=== PATIENT | female | born 1985 | race Caucasian/White ===

== ENCOUNTER 2016-11-11 05:52 | Inpatient (IN) | payer OTHER ==
[2016-11-04 15:27] VITALS: BMI 48.4
[~2016-11-11 05:52] MED LIST: ceFAZolin 2 GM in SODIUM CHLORIDE 0.9% 100 ML IVPB ONE
[2016-11-11] MEDS ORDERED: ONDANSETRON 4 MG/2 ML VIAL IVP ONE ×2 (05:58→09:55)
[2016-11-11] MEDS ORDERED: DEXAMETHASONE SOD PHOSPHATE 10 MG/ML 1 ML VIAL IV ONE (05:58)
[2016-11-11] MEDS ORDERED: SCOPOLAMINE 1.5MG/72HR PATCH TRANSDERM ONE (05:58)
[2016-11-11] MEDS ORDERED: LIDOCAINE 1% 20 ML VIAL (10MG/ML) FOR IV START INTRADERMA PRN (05:58)
[2016-11-11] MEDS: LACTATED RINGERS 1,000 ML IV SCH ×2 (06:43→14:47)
[2016-11-11] MEDS ORDERED: HEPARIN SODIUM,PORCINE 5,000 UNIT/ML 1 ML VIAL SQ ONE (07:45)
--- NOTE | 2016-11-11 07:46 | P.GSHP ---
History of Present Illness H&P Date: 11/11/16 Chief Complaint: Chronic dysphagia This is a 31-year-old female who presents today for removal of LAP-BAND secondary to chronic dysphagia. Patient is undergoing workup for conversion to sleeve gastrectomy. - Constitutional Constitutional: Reports as per HPI Past Medical History Past Medical History: Asthma, GERD/Reflux, Osteoarthritis (OA) Additional Past Medical History / Comment(s): restless leg syndrome, past hx. renal failure related to a kidneystone, chronic kidney stones, hypoglycemia History of Any Multi-Drug Resistant Organisms: None Reported Past Surgical History: Bariatric Surgery Additional Past Surgical History / Comment(s): Ovarian cyst removed in 1997, stent in kidney (removed 2 weeks after insertion) due to acute renal failure secondary to kidney stone, lapband 2002 Past Anesthesia/Blood Transfusion Reactions: No Reported Reaction Past Psychological History: No Psychological Hx Reported Smoking Status: Never smoker Past Alcohol Use History: Occasional Past Drug Use History: None Reported - Past Family History Father Family Medical History: Hypertension Mother Family Medical History: Cancer Additional Family Medical History / Comment(s): has a cardiac condition that is being investigated (has heart fluttering and extra beats)., skin cancer diagnosed fall 2015 Medications and Allergies Home Medications Medication Instructions Recorded Confirmed Type Acetaminophen [Tylenol] 325 mg PO Q4H PRN 11/04/16 11/04/16 History Allergies Allergy/AdvReac Type Severity Reaction Status Date / Time tramadol [From Ultram] Allergy Rash/Hives Verified 11/11/16 06:18 Surgical - Exam Vital Signs Temp Pulse Resp BP Pulse Ox 98.2 F 89 16 130/87 98 11/11/16 06:24 11/11/16 06:24 11/11/16 06:24 11/11/16 06:24 11/11/16 06:24 - General well developed, no distress - Eyes PERRL - ENT normal pinna - Neck no masses - Respiratory normal expansion - Cardiovascular Rhythm: regular - Abdomen Abdomen: soft, non tender Assessment and Plan Plan: Chronic dysphagia. We'll perform lap scope removal of LAP-BAND system
[2016-11-11] MEDS ORDERED: BUPIVACAIN-EPI 0.25%-1:200,000 30 ML VIAL SQ ONE ×2 (07:47→08:12)
[2016-11-11] MEDS ORDERED: GLYCOPYRROLATE 0.2 MG/ML 2 ML VIAL ONE (07:49)
[2016-11-11] MEDS ORDERED: MIDAZOLAM 2 MG/2 ML VIAL ONE (07:49)
[2016-11-11] MEDS ORDERED: NEOSTIGMINE 1 MG/ML 10 ML VIAL ONE (07:49)
[2016-11-11] MEDS ORDERED: ROCURONIUM BROMIDE 10 MG/ML 10 ML VIAL IV ONE (07:49)
[2016-11-11] MEDS ORDERED: SUCCINYLCHOLINE CHLORIDE VIAL 200 MG/10 ML VIAL IV ONE (07:49)
[2016-11-11] MEDS ORDERED: LIDOCAINE 1% INJ 10MG/ML (20 ML MDV) ONE (07:49)
[2016-11-11] MEDS ORDERED: fentaNYL (PF) 50 MCG/ML 2 ML AMP ONE (07:49)
[2016-11-11] MEDS ORDERED: PROPOFOL 10 MG/ML 20 ML VIAL IV ONE (07:49)
[2016-11-11] MEDS ORDERED: SODIUM CHLORIDE 0.9% 50 ML with ceFAZolin 1,000 MG IV ONE ×2 (08:00)
[2016-11-11] MEDS ORDERED: METHYLENE BLUE IRRIGATION STA ×2 (08:41)
[2016-11-11] MEDS ORDERED: [UNRECOGNIZED DRUG - OTHER] IRRIGATION STA ×2 (08:41)
[2016-11-11] MEDS ORDERED: SODIUM CHLORIDE 0.9% IRRIGATION STA ×2 (08:41)
[2016-11-11] MEDS ORDERED: NALOXONE 0.4 MG/ML 1 ML VIAL IV PRN (09:29)
[2016-11-11] MEDS ORDERED: ONDANSETRON 4 MG/2 ML VIAL IVP PRN (09:29)
[2016-11-11] MEDS ORDERED: LACTATED RINGERS 1,000 ML IV ONE (09:29)
--- NOTE | 2016-11-11 09:29 | P.OP ---
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 She received general anesthesia. She was then placed in dorsal lithotomy position. Her abdomen was prepped and draped in usual sterile fashion. The skin incision sites were anesthetized 1% local Xylocaine. The skin was incised the LAP-BAND port site and then using blunt and sharp dissection with cautery the LAP-BAND port was dissected free from some taste tissues. The PEG tube was then cut and the LAP-BAND port was removed. Next using a 5 mm blade less trocar under direct visitation the peritoneal cavity is entered. Upon entering the peritoneal cavity the abdomen was insufflated and then the laparoscope was placed back the pleural cavity. There were significant adhesions noted around the LAP-BAND liver and stomach. Next a 5 mm trochars placed in the left lateral and the right lateral position. Using the Harmonic scissors and Metzenbaum scissors the adhesions were lysed. Approximately 20 minutes of operative time used to lyse adhesions. Next a 15 mm trocar was exchanged for the original 5 mm trocar. And then a 5 mm trochars placed in the right epigastric addition in the left lateral lobe liver was retracted. And another 5 mm trochars placed in the supraumbilical position. The adhesions Caren device were lysed. The patient had developed a hiatal hernia and the LAP-BAND was partially in the hiatal hernia in the thorax. The LAP-BAND was brought down to the abdominal cavity and then the anterior gastric wall plication was taken down with sharp dissection. Care was taken to identify and preserve the gastric wall. The there was an obvious hiatal hernia. Using the Harmonic scissors the nhi was dissected in 360 fashion. There was a good length of intra-abdominal esophagus. The nhi was then repaired using 2-0 Ethibond suture. The LAP-BAND device was then cut and withdrawn from around stomach. The LAP-BAND was brought up through the 15 mm trocar site. The stomach was insufflated with methylene blue normal saline. There is no evidence of any injury to the stomach or esophagus. There is no extravasation of blue. The trochars withdrawn. The skin was closed interrupted 3-0 Monocryl suture. Dermabond was applied. Patient was sent to recovery in stable condition.
[2016-11-11] MEDS: HYDROmorphone 1 MG/ML 1 ML SYRINGE IVP PRN ×10 (09:40→21:01)
[2016-11-11] MEDS ORDERED: PROMETHAZINE INJ 25 MG/ML 1 ML VIAL IM STA (10:06)
[2016-11-11 21:38] VITALS: RESP 16
--- NOTE | 2016-11-11 23:10 | CONS ---
DATE OF CONSULTATION: CHIEF COMPLAINT: A 31-year-old white female, status post surgery for lap band removal, hernia removal for medical management and consult. She is having no chest pain or shortness of breath. She has chronic lower back pain for degenerative disc disease requesting some pain medicines. Otherwise no shortness of breath or chest pain. PAST MEDICAL HISTORY: Asthma, GERD, osteoarthritis, restless leg syndrome, obesity. Renal stones, hyperglycemia. PAST SURGICAL HISTORY: History of bariatric surgery. Ovarian cyst, ( ) in the kidneys ( ) in the past. SOCIAL HISTORY: No smoking. Occasional alcohol. FAMILY HISTORY: Father hypertension. Mother had some kind of cancer and cardiac condition and ( ) being invested as an outpatient by her doctor. HOME MEDICATIONS: Nothing. ALLERGIES: TRAMADOL. VITAL SIGNS: Pulse is 80s, respiratory rate 16 to 18, blood pressure 130s/80s, O2 98% on room air. RESPIRATORY: Clear. CARDIOVASCULAR: S1, S2. GI: Soft. HEMATOLOGIC: Negative Homans. PSYCHIATRIC: Fair mood and affect. ABDOMEN: Soft. ASSESSMENT: 1. Status post surgery lap band removal. 2. Hernia repair. 3. Chronic lumbar disc disease. Continue home medicines. Follow-up in the next 24 to 48 hours.
[2016-11-12] MEDS: HYDROcodone/APAP 5-325MG 1 EACH TAB PO PRN ×2 (02:57→09:25)
[2016-11-12] MEDS: HYDROmorphone 1 MG/ML 1 ML SYRINGE IVP PRN (07:27)
[2016-11-12 07:30] VITALS: BP 121/87; PULSE 81; TEMP 98
--- NOTE | 2016-11-12 13:07 | FL ---
Postoperative single contrast esophagram with upper GI examination. CLINICAL HISTORY: 31-year-old female with removal of lap band and hiatal hernia repair. Total fluoroscopy time: 33 seconds. TECHNIQUE: Single contrast exam performed utilizing 50 mL Omnipaque 350. FINDINGS: The patient swallowed oral contrast without difficulty or delay. Some tertiary peristaltic waves are seen. There is mild obstruction to the passage of contrast from esophagus into the stomach. Postopera tive changes of Stacia fundoplication are demonstrated. There is marked air distention of the stomach pushing up on the undersurface of the left hemidiaphragm. Additional layering fluid is seen within t he stomach and contrast dilutes as it collects within the stomach. There is no extravasation of contrast to suggest leak. Trace postsurgical free air noted below the right hemidiaphragm. IMPRESSION: 1. Status post lap band removal with Stacia fundoplication. No evidence for leak. 2. Mild postoperative obstruction. 3. Note marked air distention of the stomach with prominent layering fluid in the stomach as well. Th e ingested contrast dilutes within the stomach. Clinical correlation recommended. 3. Trace postsurgical free air on the right.
--- NOTE | 2016-11-12 15:48 | P.DS ---
Providers Date of admission: 11/11/16 05:52 Expected date of discharge: 11/12/16 Attending physician: Hoang Haley Consults: 11/11/16 09:29 Consult Physician Routine Consulting Provider: Jake Truong Consult Reason/Comments: Medical management Do you want consulting provider notified?: Yes Primary care physician: Physician Nonstaff Hospital Course: Patient is a 31-year-old female who presented for elective removal of lap band secondary to chronic dysphagia and GERD. Patient underwent laparoscopic lysis of adhesions; laparoscopic removal of lap band system; and laparoscopic repair of hiatal hernia. Patient was found to have gastric prolapse with migration of band into the thorax. Patient tolerated procedure well. Postop esophagram with mild postoperative obstruction, no evidence of leak. Patient had an uneventful postoperative course. Patient was felt stable for discharge to home with follow-up in the outpatient setting. Patient was instructed to stay on full liquid diet for 2 weeks. Discharge diagnoses: 1. Dysphagia. 2. GERD. 3. Gastric prolapse with migration of band into the thorax. 4. Hiatal hernia. 5. Status post laparoscopic lysis of adhesion. 6. Laparoscopic removal of lap band system. 7. Laparoscopic repair of hiatal hernia. The above impression and plan have been discussed and directed by Dr. Haley. Ellen PANDA acting as scribe for Dr. Haley. Pertinent Studies: Upper GI/barium swallow x-ray Procedures: Laparoscopic lysis of adhesion; laparoscopic removal of lap band system; laparoscopic repair of hiatal hernia Patient Condition at Discharge: Good Plan - Discharge Summary New Discharge Prescriptions: HYDROcodone/APAP 7.5-325MG [[place] 7.5-325] 1 tab PO Q6HR PRN #28 tab PRN Reason: Pain Discharge Medication List Acetaminophen [Tylenol] 325 mg PO Q4H PRN #0 11/12/16 [Rx] HYDROcodone/APAP 7.5-325MG [[place] 7.5-325] 1 tab PO Q6HR PRN #28 tab 11/12/16 [ Rx] Follow up Appointment(s)/Referral(s): Monse Torres [Other] - 11/16/16 9:00 am Hoang Haley MD [STAFF PHYSICIAN] - 11/24/16 2:20 pm (AT DR. HALEY'S OFFICE) Patient Instructions/Handouts: Laparoscopic Herniorrhaphy (DC), Full Liquid Diet (DC), Laparoscopic Hiatal Hernia Repair (DC) Activity/Diet/Wound Care/Special Instructions: No heavy lifting, pushing, or pulling items greater than 10 pounds. Full liquids for 2 weeks. Shower daily, no soaking in bath tubs, pools, or hot tubs. No driving while taking pain medication. Notify surgeon with any signs or symptoms of infection, increased pain, or not tolerating diet. Discharge Disposition: HOME SELF-CARE
== END 2016-11-12 15:03 | disposition home or self-care (01) | DRG 328 ==
LOC: 2ORWHC 05:52 → 3SUR 14:35
PROVIDERS: ADMIT Surgery; ATTEND Surgery
PROC: 0FN04ZZ Release Liver, Percutaneous Endoscopic Approach (ICD-10-PCS; principal; 2016-11-11 07:40)
PROC: 0BQR4ZZ (ICD-10-PCS; principal; 2016-11-11 07:40)
PROC: 0DN64ZZ Release Stomach, Percutaneous Endoscopic Approach (ICD-10-PCS; principal; 2016-11-11 07:40)
PROC: 0DP64CZ Removal of Extraluminal Device from Stomach, Percutaneous Endoscopic Approach (ICD-10-PCS; principal; 2016-11-11 07:40)
PROC: 0BQS4ZZ (ICD-10-PCS; principal; 2016-11-11 07:40)
DX: K95.09 Other complications of gastric band procedure (principal); R13.10 Dysphagia, unspecified; Y83.8 Other surgical procedures as the cause of abnormal reaction of the patient, or of later complication, without mention of misadventure at the time of the procedure; K21.9 Gastro-esophageal reflux disease without esophagitis; K44.9 Diaphragmatic hernia without obstruction or gangrene; K31.89 Other diseases of stomach and duodenum; G89.29 Other chronic pain; M51.9 Unspecified thoracic, thoracolumbar and lumbosacral intervertebral disc disorder; Z82.49 Family history of ischemic heart disease and other diseases of the circulatory system; Z87.442 Personal history of urinary calculi; Z88.6 Allergy status to analgesic agent
CPT/HCPCS: 74240; 81025